=== PATIENT | male | born 1965 | race Caucasian/White ===

== ENCOUNTER 2020-03-10 12:13 | Outpatient (CLI) | payer BC | END 2020-03-10 23:59 | disposition home or self-care (01) | LOC: CVU 12:13 | PROVIDERS: ATTEND Internal Medicine Cardiovascular Disease | DX: I35.8 Other nonrheumatic aortic valve disorders (principal); I10 Essential (primary) hypertension; K76.0 Fatty (change of) liver, not elsewhere classified; Z87.891 Personal history of nicotine dependence | CPT/HCPCS: 93306 ==